=== PATIENT | male | born 1960 | race African-American/Black ===

== ENCOUNTER 2020-05-27 09:18 | Inpatient (IN) | payer OTHER ==
[~2020-05-27] VITALS: Ht 165.1 cm; Wt 49.7 kg
[2020-05-27] MEDS ORDERED: SODIUM CHLORIDE 0.9% 1,000 ML IV ONE ×2 (09:30)
[2020-05-27] MEDS ORDERED: ALBUTEROL SULF 2.5 MG/0.5ML(0.5%) NEB SOLN NEB ONE (09:30)
[2020-05-27] MEDS ORDERED: methylPREDNISolone SOD SUCC 125 MG/2 ML VL IV ONE (09:30)
[2020-05-27] MEDS ORDERED: MAGNESIUM SULFATE 1GM/100ML 100 ML IV ONE (09:30)
[2020-05-27 10:02] LABS: Basophils # (auto) 0.1 10 ^3/uL (0-0.2); Basophils % (auto) 0.5 % (0.0-2.0); Eosinophils # (auto) 0 10 ^3/uL (0-0.8); Eosinophils % (auto) 0.2 % (0.0-7.0); Hematocrit 51.3 % (41.0-53.0); Hemoglobin 16.5 g/dL (13.5-17.5); Lymphocytes # (auto) 2.4 10 ^3/uL (0.4-5.4); Lymphocytes % (auto) 16.2 % (10.0-50.0); Mean Corpuscular Hemoglobin 32.5 pg (28.0-32.0); Mean Corpuscular Hgb Conc. 32.2 g/dL (32.0-36.0); Mean Corpuscular Volume 100.9 fL (80.0-100.0); Monocytes # (auto) 0.8 10 ^3/uL (0-1.3); Monocytes % (auto) 5.5 % (0.0-12.0); Neutrophils # (auto) 11.5 10 ^3/uL (1.6-8.6); Neutrophils % (auto) 77.6 % (37.0-80.0); Nucleated Red Blood Cells % 0.1 %; Platelet Count (auto) 253 10^3/uL (140-450); Red Blood Cells 5.08 10^6/uL (4.5-5.90); Red Cell Distribution Width 15.1 % (11.8-14.3); White Blood Cell 14.8 10^3/uL (4.4-10.8)
[2020-05-27 10:28] LABS: Albumin 3.5 g/dL (3.4-5.0); Calcium 8.3 mg/dL (8.5-10.1); Potassium 3.3 mmol/L (3.5-5.1)
[2020-05-27 10:30] LABS: INR 1.18 (0.9-1.15); Partial Thromboplastin Time 23.4 sec (23.0-31.2)
[2020-05-27 10:36] LABS: BUN/Creatinine Ratio 8.2; Bilirubin, Total 0.8 mg/dL (0.2-1.0); CRP High Sensitivity 0.58 mg/dL (< 0.3); Total Protein 7.6 g/dL (6.4-8.2)
[2020-05-27] MEDS ORDERED: ETOMIDATE (2MG/ML) 20ML VIAL IV ONE ×2 (11:21→11:45)
[2020-05-27] MEDS ORDERED: SUCCINYLCHOLINE CHLORIDE 20 MG/ML 10ML VIAL IV ONE ×2 (11:22→11:45)
[2020-05-27] MEDS ORDERED: MIDAZOLAM DRIP 50 mg/50mL 50 ML IV ONE ×2 (11:23→15:53)
[2020-05-27 11:31] LABS: Urine Bacteria FEW /hpf (None Seen); Urine Blood TRACE /uL (Negative); Urine Hyaline Cast MANY /lpf (0 - 2); Urine Mucus FEW (None Seen); Urine Specific Gravity 1.009 (1.001-1.035); Urine Sperm PRESENT /hpf (None Seen); Urine WBC 3 /hpf (0 - 3)
[2020-05-27] MEDS: MIDAZOLAM DRIP 50 mg/50mL 50 ML IV SCH ×3 (11:35→21:58)
[2020-05-27] MEDS ORDERED: PROPOFOL 100 ML IV ONE (11:59)
[2020-05-27] MEDS: PROPOFOL 100 ML IV SCH ×2 (12:45→20:17)
[2020-05-27] MEDS ORDERED: SODIUM CHLORIDE 0.9% 1,000 ML IV SCH (14:39)
[2020-05-27] MEDS ORDERED: MORPHINE SULF INJ 2 MG/ML SYRINGE 1ML IV PRN (14:45)
[2020-05-27] MEDS ORDERED: VANCOMYCIN PER PHARMACY 0 MG IV SCH (14:45)
[2020-05-27] MEDS ORDERED: NITROGLYCERIN 0.4 MG SL TAB SL PRN (14:45)
[2020-05-27] MEDS: VANCOMYCIN 1GM/250ML 250 ML IV SCH (16:00)
[2020-05-27 16:33] LABS: Lactic Acid w/Reflex 2.8 mmol/L (0.4-2.0)
--- NOTE | 2020-05-27 18:08 | NUR ---
RESP NOTE: INFORMED PRIMARY RN THAT FOLLOW UP CXR TO CONFIRM ETT PLACEMENT HAD NOT BEEN ORDERED. RN TO PLACE ORDER FOR STAT CXR. PT STATUS UNCHANGED AT THIS TIME.
[2020-05-27 18:10] VITALS: BP 143/111
[2020-05-27 20:10] VITALS: BP 144/107
[2020-05-27] MEDS: PIPERACILLIN-TAZOB 2.25GM 50 ML IV SCH (21:59)
[2020-05-28] VITALS (8 sets, daily range): BP systolic 95–124; BP diastolic 69–96
[2020-05-28] MEDS: PROPOFOL 100 ML IV SCH ×2 (00:48→22:11)
[2020-05-28] MEDS: MIDAZOLAM DRIP 50 mg/50mL 50 ML IV SCH ×2 (02:54→22:10)
[2020-05-28 05:32] LABS: Basophils # (auto) 0 10 ^3/uL (0-0.2); Basophils % (auto) 0.2 % (0.0-2.0); Eosinophils # (auto) 0 10 ^3/uL (0-0.8); Hematocrit 44.7 % (41.0-53.0); Hemoglobin 14.9 g/dL (13.5-17.5); Lymphocytes # (auto) 0.8 10 ^3/uL (0.4-5.4); Lymphocytes % (auto) 7.5 % (10.0-50.0); Mean Corpuscular Hemoglobin 33.2 pg (28.0-32.0); Mean Corpuscular Hgb Conc. 33.4 g/dL (32.0-36.0); Mean Corpuscular Volume 99.6 fL (80.0-100.0); Monocytes # (auto) 0.8 10 ^3/uL (0-1.3); Monocytes % (auto) 8.3 % (0.0-12.0); Neutrophils # (auto) 8.4 10 ^3/uL (1.6-8.6); Platelet Count (auto) 190 10^3/uL (140-450); Red Blood Cells 4.49 10^6/uL (4.5-5.90); Red Cell Distribution Width 14.8 % (11.8-14.3)
[2020-05-28 05:51] LABS: Albumin 2.9 g/dL (3.4-5.0); Calcium 7.7 mg/dL (8.5-10.1); Potassium 4.6 mmol/L (3.5-5.1)
[2020-05-28 05:56] LABS: BUN/Creatinine Ratio 15.5; Bilirubin, Total 0.7 mg/dL (0.2-1.0); Total Protein 6.2 g/dL (6.4-8.2)
[2020-05-28] MEDS: PIPERACILLIN-TAZOB 2.25GM 50 ML IV SCH ×3 (06:00→23:00)
[2020-05-28] MEDS: ENOXAPARIN SOD 40 MG/0.4 ML SYRINGE SC SCH (09:22)
[2020-05-28] MEDS: VANCOMYCIN 1GM/250ML 250 ML IV SCH (09:45)
[2020-05-28] MEDS ORDERED: ALBUMIN 25% 100 ML IV ONE (13:15)
[2020-05-28] MEDS ORDERED: FUROSEMIDE 40 MG/4 ML VIAL IV ONE (13:15)
[2020-05-28] MEDS ORDERED: ENOXAPARIN SOD 40 MG/0.4 ML SYRINGE SC ONE (13:30)
[2020-05-28] MEDS: FUROSEMIDE 40 MG/4 ML VIAL IV SCH (17:46)
[2020-05-29] VITALS (64 sets, daily range): BP systolic 89–178; BP diastolic 63–120
[2020-05-29] MEDS: MIDAZOLAM DRIP 50 mg/50mL 50 ML IV SCH (00:37)
[2020-05-29] MEDS: VANCOMYCIN 1GM/250ML 250 ML IV SCH ×2 (04:00→21:48)
[2020-05-29] MEDS: PIPERACILLIN-TAZOB 2.25GM 50 ML IV SCH ×3 (06:00→21:48)
[2020-05-29] MEDS: FUROSEMIDE 40 MG/4 ML VIAL IV SCH ×2 (06:00→18:29)
[2020-05-29 08:13] LABS: Basophils # (auto) 0.1 10 ^3/uL (0-0.2); Basophils % (auto) 0.7 % (0.0-2.0); Eosinophils # (auto) 0 10 ^3/uL (0-0.8); Eosinophils % (auto) 0.2 % (0.0-7.0); Hematocrit 48.9 % (41.0-53.0); Hemoglobin 15.9 g/dL (13.5-17.5); Lymphocytes # (auto) 1.4 10 ^3/uL (0.4-5.4); Lymphocytes % (auto) 9.6 % (10.0-50.0); Mean Corpuscular Hemoglobin 32.4 pg (28.0-32.0); Mean Corpuscular Hgb Conc. 32.5 g/dL (32.0-36.0); Mean Corpuscular Volume 99.7 fL (80.0-100.0); Monocytes # (auto) 1.2 10 ^3/uL (0-1.3); Monocytes % (auto) 8.3 % (0.0-12.0); Neutrophils # (auto) 11.9 10 ^3/uL (1.6-8.6); Neutrophils % (auto) 81.2 % (37.0-80.0); Nucleated Red Blood Cells % 0.1 %; Platelet Count (auto) 190 10^3/uL (140-450); Red Blood Cells 4.91 10^6/uL (4.5-5.90); Red Cell Distribution Width 15.2 % (11.8-14.3); White Blood Cell 14.7 10^3/uL (4.4-10.8)
[2020-05-29 08:38] LABS: Potassium 4.6 mmol/L (3.5-5.1)
[2020-05-29 08:46] LABS: Albumin 3.3 g/dL (3.4-5.0); Bilirubin, Total 0.9 mg/dL (0.2-1.0); Total Protein 6.7 g/dL (6.4-8.2)
--- NOTE | 2020-05-29 08:50 | NUR ---
Admit to ICU from ER on RITA Walker admitted to ICU ROOM 103 via gurney on sales associate, intubated and being bagged by Respiratory Therapist. Patient transferred to bed, connected to mechanical ventilator by therapist, GIBSON at bedside. Patient connected to ICU monitoring, weighed by bed scale, oriented to RADHA NAQVI, MARY primary RN, unit, ventilator and sedation.
[2020-05-29] MEDS: PANTOPRAZOLE 40 MG/10 ML VIAL INJ IV SCH (10:00)
[2020-05-29] MEDS: ENOXAPARIN SOD 40 MG/0.4 ML SYRINGE SC SCH (10:00)
--- NOTE | 2020-05-29 10:57 | NUR ---
Est energy needs 3832-1581 kcal (25-30 kcal/kg BW 63kg) Est protein needs 38-50g (0.6-0.8g/kg BW 63kg r/t elevated RFT) Will reassess prn. Consider Glucerna 1.2 at 40 ml/hr per MD approval if GI is accessible Addendum: 05/29/20 at [address] Amended: Links added.
[2020-05-29] MEDS: DOBUTamine 1000MCG/ML 250 ML IV SCH (11:28)
--- NOTE | 2020-05-29 12:50 | NUR ---
ABDOMINAL ULTRASOUND BEING DONE AT THIS TIME.
--- NOTE | 2020-05-29 13:45 | NUR ---
2D ECHO BEING DONE AT THIS TIME.
[2020-05-29] MEDS ORDERED: METOPROLOL TARTRATE 1MG/1ML-5ML VIAL IV PRN (14:45)
--- NOTE | 2020-05-29 15:56 | NUR ---
THIS RN WAS UNABLE TO ENTIRELY COMPLETE THE ADMISSION DUE TO PATIENT BEING INTUBATED AND SEDATED, PATIENT IS UNABLE TO ANSWER ANY QUESTIONS AND PATIENT HAS NO FAMILY.
--- NOTE | 2020-05-29 16:00 | NUR ---
WOUND CARE NOTE: IN TO SEE PATIENT AT THIS TIME FOR SKIN INTEGRITY. PATIENT ADMITTED TO [facility] WITH DIAGNOSIS OF PNA. HE IS INTUBATED, SEDATED, CADEN SCORE IS 10. PATIENT IN ICU BED 103A. HE IS RESTING ON ICU LOW AIRLOSS MATTRESS. HE IS VERY THIN, WEIGHING ONLY 67.1 KG. NO WOUNDS NOTED. HE DOES HAVE WHAT APPEARS TO BE XEROSIS TO BLE, WITH PATCHY WHITE SKIN NOTED TO BILATERAL LEGS. NO OTHER SKIN INTEGRITY ISSUES. SKIN/WOUND CARE PLAN IMPLEMENTED. RECOMMEND: FREQUENT TURN SCHEDULE Q 2 HOURS PRN CONDITION PERMITS, WITH PRESSURE REDISTRIBUTION USING PILLOWS/WEDGES, BID/PRN APPLICATION MOISTURE BARRIER CREAM (HYDRAGUARD) TO SACRUM AND BILATERAL LOWER EXTREMITIES (XEROTIC SKIN), COVERING SACRUM WITH OPTIFOAM GENTLE SACRAL DRESSING PREVENTATIVE, DIETARY CONSULT, SKIN/WOUND CARE PLAN, CONTINUED MONITORING BY WOUND CARE TEAM.
--- NOTE | 2020-05-29 19:30 | NUR ---
OPENING SHIFT NOTE REPORT RECEIVED FROM CHARLES RN. RECEIVED MECHANICALLY VENTILATED ON CONTINUOUS BEDSIDE MONITOR. ETT 8.0, 22 AT THE LIP. VENT SETTINGS: PRESSURE CONTROL, RATE 20, PRESSURE 12, FIO2 50%, PEEP 5. OGT TUBE IN PLACE, AUSCULTATED TO VERIFY PLACEMENT. RIGHT FEMORAL TRIPLE LUMEN CATH RUNNING VERSED, PROPOFOL, AND DOBUTAMINE GTTS-SEE IV SPREAD SHEET FOR RATES. PHYSICAL ASSESSMENT COMPLETED- SEE INTERVENTIONS. DAUGHERTY DRAINING YELLOW URINE WITH SEDIMENT. WILL MONITOR CLOSELY.
--- NOTE | 2020-05-29 21:00 | NUR ---
SEDATION VACATION UNABLE TO COMPLETELY STOP ALL SEDATION AT THIS TIME. WILL BEGIN TO WEAN PATIENT DOWN ON SEDATION FOR POSSIBLE CPAP TRIAL IN AM. Addendum: 05/29/20 at 2120 by Devi Davis RN Amended: Links added.
[2020-05-29] MEDS: PROPOFOL 100 ML IV SCH (22:50)
[2020-05-30] VITALS (104 sets, daily range): BP systolic 96–164; BP diastolic 58–105
[2020-05-30] MEDS: MIDAZOLAM DRIP 50 mg/50mL 50 ML IV SCH ×2 (01:49→19:42)
[2020-05-30 03:56] LABS: Basophils # (auto) 0 10 ^3/uL (0-0.2); Basophils % (auto) 0.3 % (0.0-2.0); Eosinophils # (auto) 0 10 ^3/uL (0-0.8); Eosinophils % (auto) 0.1 % (0.0-7.0); Hematocrit 44.3 % (41.0-53.0); Hemoglobin 14.6 g/dL (13.5-17.5); Lymphocytes # (auto) 1.3 10 ^3/uL (0.4-5.4); Mean Corpuscular Hemoglobin 32.8 pg (28.0-32.0); Mean Corpuscular Hgb Conc. 32.9 g/dL (32.0-36.0); Mean Corpuscular Volume 99.7 fL (80.0-100.0); Monocytes # (auto) 1.3 10 ^3/uL (0-1.3); Monocytes % (auto) 8.8 % (0.0-12.0); Neutrophils # (auto) 11.9 10 ^3/uL (1.6-8.6); Neutrophils % (auto) 81.8 % (37.0-80.0); Platelet Count (auto) 166 10^3/uL (140-450); Red Blood Cells 4.44 10^6/uL (4.5-5.90); Red Cell Distribution Width 14.9 % (11.8-14.3); White Blood Cell 14.6 10^3/uL (4.4-10.8)
--- NOTE | 2020-05-30 04:00 | NUR ---
DESATURATION DOWN TO 79%: SUCTIONED LARGE AMOUNT OF THIN/THICK CLEAR TO BLOODY ETT SECRETION AND ORAL SECRETIONS. PATIENT RECOVERED TO > 90% BUT TOOK HIM LONGER THAN 20 SECONDS. PULSE OX PROBE PLACED TO EAR D/T COLD EXTREMITIES. IAIN LU
[2020-05-30 04:13] LABS: BUN/Creatinine Ratio 14.9; Calcium 8.3 mg/dL (8.5-10.1); Potassium 3.7 mmol/L (3.5-5.1)
--- NOTE | 2020-05-30 04:15 | NUR ---
AM CARE PATIENT GIVEN A BED BATH USING CHG WIPES. LINEN AND GOWN CHANGE PROVIDED TO PATIENT. SMALL LOOSE BM NOTED, PATIENT CLEANSED WITH WARM SOAPY WASH CLOTHS. NEW OPTIFOAM PLACED TO SACRUM PREVENTATIVE. SKIN REASSESSED DURING THIS TIME, NO CHANGES SINCE START OF SHIFT. SUCTION CANISTER AND ALL TUBING REPLACED.
[2020-05-30] MEDS: PROPOFOL 100 ML IV SCH (05:10)
[2020-05-30] MEDS: PIPERACILLIN-TAZOB 2.25GM 50 ML IV SCH ×3 (05:52→22:10)
[2020-05-30] MEDS: FUROSEMIDE 40 MG/4 ML VIAL IV SCH ×2 (05:52→17:34)
--- NOTE | 2020-05-30 06:50 | NUR ---
FAMILY PATIENTS CALLED FOR AN UPDATE. NO NOK LISTED IN CHART. WAS ABLE TO VERIFY ALL INFORMATION OF PATIENT SUCH , ADDRESS AND LAST 4 OF SOCIAL. NOK [phone] PASSWORD UPDATED: "[id number]"
--- NOTE | 2020-05-30 07:05 | NUR ---
CLOSING CARE ENDORSED TO AM SHIFT MARY GARCIA TO ASSUME CARE OF PATIENT.
--- NOTE | 2020-05-30 08:40 | NUR ---
FAMILY UPDATE UPDATED PATIENTS MOM JAGDEEP ON PATIENTS CURRENT CONDITION. ALL QUESTIONS ANSWERED AT THIS TIME. JOSÉ MIGUEL # IS [phone].
[2020-05-30] MEDS: PANTOPRAZOLE 40 MG/10 ML VIAL INJ IV SCH (09:32)
[2020-05-30] MEDS: DOBUTamine 1000MCG/ML 250 ML IV SCH (09:33)
[2020-05-30] MEDS: ENOXAPARIN SOD 40 MG/0.4 ML SYRINGE SC SCH (09:33)
[2020-05-30] MEDS ORDERED: Glucerna 1.2 Cal 1Liter BOTTLE GT SCH (11:45)
--- NOTE | 2020-05-30 12:20 | NUR ---
FAMILY UPDATE UPDATED PATIENTS CAR ON PATIENTS CURRENT CONDITION. ALL QUESTIONS ANSWERED AT THIS TIME.
--- NOTE | 2020-05-30 12:48 | NUR ---
PATIENT TAKEN TO CT.
--- NOTE | 2020-05-30 12:56 | NUR ---
assessment Patient is a 60 year old male who is on a vent in ICU. Per patients Truman prior to admission patient lived home with her and family and was independent. 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 Per Truman she had left for work and within 20minutes patient had called 911 and was brought to ER. Patients PCP is at [facility]. I informed Truman patients post discharge needs to be determined after extubation and prior to discharge. I will continue to monitor and follow up as appropriate. Truman verbalized understanding. Addendum: 05/30/20 at 1301 by Mariah KUMARI Amended: Links added.
--- NOTE | 2020-05-30 13:16 | NUR ---
PATIENT RETURNED FROM CT. PATIENT LINENS CHANGED AND PATIENT MADE COMFORTABLE.
--- NOTE | 2020-05-30 13:45 | NUR ---
MULTIPLE PHONE CALLS FROM FAMILY MEMBERS ONE RIGHT AFTER ANOTHER. SPOKE TO CAR WHO STATES THAT SHE IS NOW THE ONLY ONE WHO CAN CALL AND GET INFORMATION AT THIS TIME DUE TO INCREASED PHONE CALLS.
--- NOTE | 2020-05-30 14:05 | NUR ---
Nutrition Assessment Followup Notes Pt wt is 68.3 kg Pt is intubated, sedated with propofol @ 11.431 ml providing 302 kcals from lipids. Pt has been NPO since 05/21 per RN doc. Per RN, pt to be started on EN nutrition support Glucerna 1.2 at a lessor rate than the recommended goal rate of 40ml/hr to gauge pt tolerance, increasing as tolerated. Est energy needs 4109-4702 kcal (25-30 kcal/kg BW 63kg) Est protein needs 38-50g (0.6-0.8g/kg BW 63kg r/t elevated RFT) Will reassess prn. LABS: BUN 20 H, CR 1.34 H, CA 8.3 L, ALB 3.3 L GI: Pt had 1 BM on 05/30 per RN doc BS: 10 high risk. Refer to wound assessment report for full details. PES: 1) Altered nutrition related labs r/t current medical condition aeb pt with elevated RFTs, hypoalb, hyperlgycemia 2) Inadequate oral intake r/t current medical condition aeb pt with NPO diet order Comments Will continue to monitor PO status, skin status, pertinent labs and weight trends. Will f/u in 2-3 days. 1) Continue to monitor po status, labs, skin 2) refer pt to OPD on DC 3) Continue current plan of care Consider Glucerna 1.2 at 40 ml/hr per MD approval if GI is accessible
--- NOTE | 2020-05-30 15:00 | NUR ---
05/30/20 Rosalina Spoke with Gutierrez is support analyst at [place] [facility] and stated they received the clinical packet and gave authorization for the in patient stay for 06/05/20 @1000 # [id number].
[2020-05-30] MEDS: ACETYLCYSTEINE 10 %(100MG/ML) SOL 4ML NEB SCH ×2 (15:43→22:59)
[2020-05-30] MEDS: VANCOMYCIN 1GM/250ML 250 ML IV SCH (17:34)
--- NOTE | 2020-05-30 19:30 | NUR ---
OPENING SHIFT NOTE REPORT RECEIVED FROM CHARLES RN. RECEIVED MECHANICALLY VENTILATED ON CONTINUOUS BEDSIDE MONITOR. ETT 8.0, 22 AT THE LIP. VENT SETTINGS: PRESSURE CONTROL, RATE 16, PRESSURE 12, FIO2 75%, PEEP 5. OGT TUBE IN PLACE, AUSCULTATED TO VERIFY PLACEMENT. RIGHT FEMORAL TRIPLE LUMEN CATH RUNNING VERSED, PROPOFOL, AND DOBUTAMINE GTTS-SEE IV SPREAD SHEET FOR RATES. PHYSICAL ASSESSMENT COMPLETED- SEE INTERVENTIONS. DAUGHERTY DRAINING YELLOW URINE WITH SEDIMENT. WILL MONITOR CLOSELY.
--- NOTE | 2020-05-30 20:22 | NUR ---
FEEDING GLUCERNA 1.2 HANNAH STARTED ORDERED BY MD. RESIDUAL IN OGT CHECKED PRIOR TO ADMINISTRATION. NO RESIDUALS NOTED. HOB ELEVATED. GLUCERNA STARTED AT 10ML/HR. GOAL RATE IS 40. WILL INCREASE DEPENDING ON RESIDUALS. WILL CONTINUE TO MONITOR.
--- NOTE | 2020-05-30 21:00 | NUR ---
SEDATION VACATION NOT DONE AT THIS TIME. RESPIRATORY STATUS TOO UNSTABLE. Addendum: 05/30/20 at 2237 by Devi Davis RN Amended: Links added.
[2020-05-30] MEDS: BUDESONIDE (INHALATION) 0.5 MG/2 ML NEB NEB SCH (22:59)
[2020-05-30] MEDS: ALBUTEROL SULF 2.5 MG/0.5ML(0.5%) NEB SOLN NEB SCH (22:59)
--- NOTE | 2020-05-30 23:12 | NUR ---
PREVIOUS ABG REPORTED TO DR. ZUNIGA. NEW ORDERS FOR VENT. VENT SETTINGS PC P 14, RR 22, +5, I-TIME 0.9, AND FIO2 OF 60%. WILL DRAW FOLLOW UP ABG.
[2020-05-31] VITALS (107 sets, daily range): BP systolic 92–145; BP diastolic 56–94
--- NOTE | 2020-05-31 00:20 | NUR ---
TUBE FEEDINGS RESIDUALS CHECKED, LESS THAN 5ML NOTED. FEEDINGS INCREASED TO 30ML/HR. WILL CONTINUE TO MONITOR.
[2020-05-31] MEDS: PROPOFOL 100 ML IV SCH ×2 (00:45→06:24)
--- NOTE | 2020-05-31 03:15 | NUR ---
AM CARE PATIENT GIVEN COMPLETE BED BATH USING CHG WIPES ON EXTREMITIES AND TORSO. WARM SOAPY WASH CLOTH USED TO CLEAN FACE. COMPLETE LINEN CHANGE GIVEN. NEW GOWN PROVIDED TO PATIENT. ORAL CARE DONE, COPIOUS AMOUNTS OF THIN PINK TINGED SECRETIONS FROM ORAL CAVITY REMOVED. SUCTION CANISTER AND ALL TUBING REPLACED.
[2020-05-31 04:16] LABS: Basophils # (auto) 0 10 ^3/uL (0-0.2); Basophils % (auto) 0.2 % (0.0-2.0); Eosinophils # (auto) 0 10 ^3/uL (0-0.8); Eosinophils % (auto) 0.4 % (0.0-7.0); Hematocrit 44.4 % (41.0-53.0); Hemoglobin 14.4 g/dL (13.5-17.5); Lymphocytes # (auto) 1.2 10 ^3/uL (0.4-5.4); Lymphocytes % (auto) 10.1 % (10.0-50.0); Mean Corpuscular Hemoglobin 32.4 pg (28.0-32.0); Mean Corpuscular Hgb Conc. 32.3 g/dL (32.0-36.0); Mean Corpuscular Volume 100.1 fL (80.0-100.0); Monocytes # (auto) 0.9 10 ^3/uL (0-1.3); Monocytes % (auto) 7.5 % (0.0-12.0); Neutrophils # (auto) 9.7 10 ^3/uL (1.6-8.6); Neutrophils % (auto) 81.8 % (37.0-80.0); Nucleated Red Blood Cells % 0.1 %; Platelet Count (auto) 182 10^3/uL (140-450); Red Blood Cells 4.44 10^6/uL (4.5-5.90); Red Cell Distribution Width 14.9 % (11.8-14.3); White Blood Cell 11.9 10^3/uL (4.4-10.8)
--- NOTE | 2020-05-31 04:17 | NUR ---
TUBE ADVANCED AND SECURED BY TADEO AT 25 UPPER LIP BASED ON REPORT ON PREVIOUS CHEST X-RAY. Addendum: 05/31/20 at 0435 by IAIN HAWK RT ETT ADVANCED
[2020-05-31 04:40] LABS: Albumin 2.7 g/dL (3.4-5.0); BUN/Creatinine Ratio 14.3; Calcium 8.5 mg/dL (8.5-10.1); Total Protein 6.5 g/dL (6.4-8.2)
--- NOTE | 2020-05-31 05:00 | NUR ---
FEEDINGS HELD. RESIDUALS CHECKED AT THIS TIME. 50ML OF GASTRIC CONTENT ASPIRATED AND PLACED BACK IN. TUBE FEEDINGS STOPPED AT THIS TIME.
[2020-05-31] MEDS: FUROSEMIDE 40 MG/4 ML VIAL IV SCH ×2 (06:01→18:16)
[2020-05-31] MEDS: PIPERACILLIN-TAZOB 2.25GM 50 ML IV SCH (06:02)
[2020-05-31] MEDS: BUDESONIDE (INHALATION) 0.5 MG/2 ML NEB NEB SCH ×2 (06:07→23:16)
[2020-05-31] MEDS: ALBUTEROL SULF 2.5 MG/0.5ML(0.5%) NEB SOLN NEB SCH ×3 (06:07→23:16)
[2020-05-31] MEDS: ACETYLCYSTEINE 10 %(100MG/ML) SOL 4ML NEB SCH ×3 (06:07→23:17)
--- NOTE | 2020-05-31 07:08 | NUR ---
CLOSING CARE ENDORSED TO MARY GARCIA TO ASSUME CARE OF PATIENT.
[2020-05-31] MEDS: POTASSIUM CHL 20MEQ/100ML 100 ML IV SCH ×3 (08:00→09:46)
[2020-05-31] MEDS ORDERED: POTASSIUM CHL 20MEQ/100ML 300 ML IV ONE (08:15)
[2020-05-31] MEDS: PANTOPRAZOLE 40 MG/10 ML VIAL INJ IV SCH (10:00)
[2020-05-31] MEDS: ENOXAPARIN SOD 40 MG/0.4 ML SYRINGE SC SCH (10:00)
[2020-05-31] MEDS ORDERED: PIPERACILLIN-TAZOB 3.375GM 100 ML IV ONE (13:00)
[2020-05-31] MEDS: DOBUTamine 1000MCG/ML 250 ML IV SCH (13:42)
[2020-05-31] MEDS: VANCOMYCIN 1GM/250ML 250 ML IV SCH (14:23)
[2020-05-31] MEDS: PIPERACILLIN-TAZOB 3.375GM 100 ML IV SCH (18:17)
[2020-05-31] MEDS ORDERED: PIPERACILLIN-TAZOB 3.375GM 100 ML IV SCH (19:00)
--- NOTE | 2020-05-31 19:30 | NUR ---
Opening Shift Note Assumed care of patient, tolerating ventilator well, mod sedation. No S/S of distress or pain. De La Fuente draining and patent to gravity. Feeding held at this time to allow for digestion and minimize residuals. All medications and drips infusing as appropriate for pt. Oral care provided, pt turned. VS WNL. Instructed on POC unable to comprehend under sedation, will continue to closely monitor.
--- NOTE | 2020-05-31 22:10 | NUR ---
No S/S of distress. Tolerated oral care well. No changes in infusions or ventilation care. Will continue to monitor.
[2020-05-31] MEDS: MIDAZOLAM DRIP 50 mg/50mL 50 ML IV SCH (22:27)
--- NOTE | 2020-05-31 23:26 | NUR ---
Feeding started. 40ml of residual bial noted. Feeding infusing at 20ml/hr. No S/S of distress. Tolerating vent and sedation well. Will continue to monitor.
[2020-06-01] VITALS (103 sets, daily range): BP systolic 113–176; BP diastolic 64–108
--- NOTE | 2020-06-01 00:04 | NUR ---
Pt remains stable. Oral care done, pt turned and temp of 99.3 rectally noted. Covers removed and socks removed. Will continue to monitor. Other VS WNL.
[2020-06-01] MEDS: PIPERACILLIN-TAZOB 3.375GM 100 ML IV SCH ×4 (01:02→19:18)
[2020-06-01] MEDS: PROPOFOL 100 ML IV SCH ×3 (01:04→19:21)
--- NOTE | 2020-06-01 02:00 | NUR ---
Low grade temp 99.5 rectally, blankets and socks removed, ice packs placed. Pt turned and oral care given, tolerated well.
--- NOTE | 2020-06-01 03:00 | NUR ---
Temp 98.4. socks and blanket applied. Pt bathed and linen changed. Zguard on buttocks for protection. No S/S of distress.
[2020-06-01 04:27] LABS: BUN/Creatinine Ratio 11.7; Calcium 8.9 mg/dL (8.5-10.1); Potassium 3.4 mmol/L (3.5-5.1)
--- NOTE | 2020-06-01 05:00 | NUR ---
Pt stable, tolerating vent well. Turned and oral care. Putting more oral secretions out as the morning comes. Frequent oral suction with beckaker needed. Will continue to monitor.
[2020-06-01] MEDS: BUDESONIDE (INHALATION) 0.5 MG/2 ML NEB NEB SCH ×2 (06:06→22:13)
[2020-06-01] MEDS: ALBUTEROL SULF 2.5 MG/0.5ML(0.5%) NEB SOLN NEB SCH ×3 (06:06→22:13)
[2020-06-01] MEDS: ACETYLCYSTEINE 10 %(100MG/ML) SOL 4ML NEB SCH ×3 (06:07→22:12)
[2020-06-01] MEDS: FUROSEMIDE 40 MG/4 ML VIAL IV SCH ×2 (06:52→18:00)
[2020-06-01] MEDS: MIDAZOLAM DRIP 50 mg/50mL 50 ML IV SCH ×2 (06:54→19:20)
--- NOTE | 2020-06-01 07:23 | NUR ---
Temp 99.5 but reported to AM shift of issue. Also gave full report on pt. No S/S of distress at time of report, stable VS WNL. Care endorsed.
--- NOTE | 2020-06-01 07:51 | NUR ---
EPISODE OF BRADYCARDIA AND TACHYCARDIA Patient had an episode of desaturation, down to 30%. Heart rate up to 186 beats per minute and down to 52 beats per minute. Heart rate went up then down, back up, back down. Brought crash cart and placed pads on patient. Currently heart rate is now maintaining 98-100bpm.
--- NOTE | 2020-06-01 08:00 | NUR ---
OPENING Report received. Care initiated and initial assessment complete.
--- NOTE | 2020-06-01 08:00 | NUR ---
PAGED DR SOLEDAD Carvajal responded. New orders received.
[2020-06-01] MEDS: DOPamine 1600MCG/ML D5W 250 ML IV SCH (08:02)
--- NOTE | 2020-06-01 09:00 | NUR ---
DR CARVAJAL ROUNDING Dr. Carvajal on the unit. No changes.
--- NOTE | 2020-06-01 09:50 | NUR ---
BEDSIDE Dr. Pappas bedside. No new orders received. Updated on patient status.
[2020-06-01] MEDS: VANCOMYCIN 1GM/250ML 250 ML IV SCH ×2 (09:51→12:15)
[2020-06-01] MEDS: POTASSIUM CHL 20MEQ/100ML 100 ML IV SCH ×2 (09:53→10:30)
[2020-06-01] MEDS: PANTOPRAZOLE 40 MG/10 ML VIAL INJ IV SCH (09:53)
[2020-06-01] MEDS: ENOXAPARIN SOD 40 MG/0.4 ML SYRINGE SC SCH (09:53)
--- NOTE | 2020-06-01 10:55 | NUR ---
Nutrition Assessment Followup Notes Pt wt is 63.0 kg Pt is intubated, sedated with propofol @ 13.336 ml providing 352 kcals from lipids. PT with Glucerna 1.2 ordered at 40 ml/hr. Per RN note pt with residuals of 40 ml, pt on TF of 20 ml/hr. will continue to monitor TF rate and tolerance. Est energy needs 8036-5335 kcal (25-30 kcal/kg BW 63kg) Est protein needs 50-63g (0.8-1g/kg BW 63kg appears JANEEN resolved, RFTs WNL, consider adjusting if RFTs become elevated again) Will reassess prn. LABS: CO2 38H, Alb 2.7L GI: Pt had 1 BM on 05/30 per RN doc BS: 11 high risk. Refer to wound assessment report for full details. PES: 1) Altered nutrition related labs r/t current medical condition aeb pt with elevated RFTs, hypoalb, hyperlgycemia 2) Inadequate oral intake r/t current medical condition aeb pt with NPO diet order Comments Consider Osmolite 1.2 at 50 ml/hr at current rate of propofol per MD approval Will continue to monitor PO status, skin status, pertinent labs and weight trends. Will f/u in 2-3 days. 1) Continue to monitor po status, labs, skin 2) refer pt to OPD on DC 3) Continue current plan of care
[2020-06-01] MEDS: DOBUTamine 1000MCG/ML 250 ML IV SCH (11:15)
--- NOTE | 2020-06-01 14:00 | NUR ---
FULL LINEN CHANGE/BM Small runny BM. Patient tolerated fairly.
--- NOTE | 2020-06-01 21:00 | NUR ---
SEDATION VACATION PATIENT IS DEEPLY SEDATED. SEDATION TURNED OFF TO CHECK THE NEURO STATUS.
[2020-06-02] VITALS (108 sets, daily range): BP systolic 105–175; BP diastolic 32–105
[2020-06-02] MEDS: PIPERACILLIN-TAZOB 3.375GM 100 ML IV SCH ×4 (01:24→18:09)
[2020-06-02] MEDS: PROPOFOL 100 ML IV SCH (03:54)
[2020-06-02 04:57] LABS: Basophils # (auto) 0 10 ^3/uL (0-0.2); Basophils % (auto) 0.4 % (0.0-2.0); Eosinophils # (auto) 0.1 10 ^3/uL (0-0.8); Eosinophils % (auto) 1.4 % (0.0-7.0); Hematocrit 46.5 % (41.0-53.0); Hemoglobin 15.5 g/dL (13.5-17.5); Lymphocytes # (auto) 0.9 10 ^3/uL (0.4-5.4); Lymphocytes % (auto) 9.9 % (10.0-50.0); Mean Corpuscular Hemoglobin 32.8 pg (28.0-32.0); Mean Corpuscular Hgb Conc. 33.3 g/dL (32.0-36.0); Mean Corpuscular Volume 98.6 fL (80.0-100.0); Monocytes # (auto) 1.5 10 ^3/uL (0-1.3); Neutrophils # (auto) 6.8 10 ^3/uL (1.6-8.6); Neutrophils % (auto) 72.3 % (37.0-80.0); Nucleated Red Blood Cells % 0.2 %; Platelet Count (auto) 216 10^3/uL (140-450); Red Blood Cells 4.71 10^6/uL (4.5-5.90); White Blood Cell 9.3 10^3/uL (4.4-10.8)
--- NOTE | 2020-06-02 05:00 | NUR ---
SEDATION INCREASED PATIENT IS LIGHTLY SEDATED. HYPERTENSIVE. DIPRIVAN INCREASED TO 45MCG/KG/MIN
[2020-06-02 05:11] LABS: Calcium 9.2 mg/dL (8.5-10.1); Potassium 3.4 mmol/L (3.5-5.1)
[2020-06-02] MEDS: DOPamine 1600MCG/ML D5W 250 ML IV SCH (05:12)
[2020-06-02 05:14] LABS: BUN/Creatinine Ratio 12.7
[2020-06-02] MEDS: VANCOMYCIN 1GM/250ML 250 ML IV SCH (05:51)
[2020-06-02] MEDS: FUROSEMIDE 40 MG/4 ML VIAL IV SCH ×2 (05:51→18:09)
[2020-06-02] MEDS: ALBUTEROL SULF 2.5 MG/0.5ML(0.5%) NEB SOLN NEB SCH ×3 (06:20→22:17)
[2020-06-02] MEDS: ACETYLCYSTEINE 10 %(100MG/ML) SOL 4ML NEB SCH ×3 (06:20→22:18)
[2020-06-02] MEDS: MIDAZOLAM DRIP 50 mg/50mL 50 ML IV SCH (06:36)
--- NOTE | 2020-06-02 07:45 | NUR ---
OPENING Report received from Jerod RIOS RN. Care initiated and initial assessment complete.
--- NOTE | 2020-06-02 09:13 | NUR ---
PARTIAL LINEN CHANGE / SMALL BM Patient had a small liquid BM. Cleaned, and new linen placed. Patient tolerated well.
[2020-06-02] MEDS: PANTOPRAZOLE 40 MG/10 ML VIAL INJ IV SCH (09:49)
[2020-06-02] MEDS: ENOXAPARIN SOD 40 MG/0.4 ML SYRINGE SC SCH (09:49)
[2020-06-02] MEDS: DOBUTamine 1000MCG/ML 250 ML IV SCH (11:00)
[2020-06-02 11:25] LABS: Hepatitis B Surface Antibody Negative
[2020-06-02 11:45] LABS: Hepatitis A Total Antibody Negative
[2020-06-02 13:14] LABS: Hepatitis C Antibody Negative (Negative)
[2020-06-02 13:15] LABS: Hepatitis B Core Total AB Negative
[2020-06-02 13:16] LABS: Hepatitis B Surface Antigen Negative (Negative)
[2020-06-02] MEDS: BUDESONIDE (INHALATION) 0.5 MG/2 ML NEB NEB SCH ×2 (14:10→22:17)
[2020-06-02] MEDS: POTASSIUM CHL 20MEQ/100ML 100 ML IV SCH ×2 (16:30→18:30)
--- NOTE | 2020-06-02 19:30 | NUR ---
REPORT RECEIVED AND ASSUMED CARE; SEE INTERVENTIONS FOR ASSESSMENT; VS STABLE AT THIS TIME; SEE IV SPREADSHEET FOR GTTS; PT. INTUBATED/SEDATED/VENTED; WILL CONT. TO MONITOR.
[2020-06-03] VITALS (102 sets, daily range): BP systolic 117–201; BP diastolic 6–115
[2020-06-03] MEDS: VANCOMYCIN 1GM/250ML 250 ML IV SCH ×2 (00:15→21:00)
[2020-06-03] MEDS: PIPERACILLIN-TAZOB 3.375GM 100 ML IV SCH ×4 (02:00→17:58)
--- NOTE | 2020-06-03 02:30 | NUR ---
XW=[id number]; ACCUCHECK PERFORMED PT. ON TUBE-FEEDING; NO ISS; WILL CONT. TO MONITOR.
[2020-06-03 04:52] LABS: Basophils # (auto) 0 10 ^3/uL (0-0.2); Basophils % (auto) 0.4 % (0.0-2.0); Eosinophils # (auto) 0.1 10 ^3/uL (0-0.8); Eosinophils % (auto) 1.5 % (0.0-7.0); Hematocrit 45.1 % (41.0-53.0); Hemoglobin 14.9 g/dL (13.5-17.5); Lymphocytes # (auto) 1.2 10 ^3/uL (0.4-5.4); Lymphocytes % (auto) 14.4 % (10.0-50.0); Mean Corpuscular Hemoglobin 32.7 pg (28.0-32.0); Mean Corpuscular Hgb Conc. 33.2 g/dL (32.0-36.0); Mean Corpuscular Volume 98.5 fL (80.0-100.0); Monocytes # (auto) 1.3 10 ^3/uL (0-1.3); Monocytes % (auto) 15.7 % (0.0-12.0); Neutrophils # (auto) 5.5 10 ^3/uL (1.6-8.6); Nucleated Red Blood Cells % 0.2 %; Platelet Count (auto) 209 10^3/uL (140-450); Red Blood Cells 4.57 10^6/uL (4.5-5.90); White Blood Cell 8.1 10^3/uL (4.4-10.8)
[2020-06-03 05:07] LABS: Albumin 2.9 g/dL (3.4-5.0); Potassium 3.6 mmol/L (3.5-5.1)
[2020-06-03 05:13] LABS: BUN/Creatinine Ratio 15.5; Bilirubin, Total 0.6 mg/dL (0.2-1.0); Calcium 9.4 mg/dL (8.5-10.1); Total Protein 7.4 g/dL (6.4-8.2)
[2020-06-03] MEDS: ALBUTEROL SULF 2.5 MG/0.5ML(0.5%) NEB SOLN NEB SCH ×3 (05:52→22:09)
[2020-06-03] MEDS: BUDESONIDE (INHALATION) 0.5 MG/2 ML NEB NEB SCH ×2 (05:52→22:09)
[2020-06-03] MEDS: ACETYLCYSTEINE 10 %(100MG/ML) SOL 4ML NEB SCH ×3 (05:52→22:10)
--- NOTE | 2020-06-03 07:30 | NUR ---
REPORT REPORT RECEIVED FROM HARLEY RNEMILY. BEDSIDE CHECK DONE. PT INTUBATED AND SEDATED WITH NO DISTRESS NOTED. CONTINUE TO MONITOR.
[2020-06-03] MEDS: FUROSEMIDE 40 MG/4 ML VIAL IV SCH ×2 (07:50→17:56)
--- NOTE | 2020-06-03 08:00 | NUR ---
ASSESSMENT PT RESTING IN BED WITH EYES CLOSED. MILD WITHDRAWL TO PAINFUL STIMULI. SEDATEDD AND INTUBATED WITH VENTILATOR SETTINGS OF: 8 FR ETT/25 AT THE LIP, PC RATE OF 22, PRESSURE OF 14, 35% fio2 and peep of 5. lungs clear aand diminished. TELE SR 80. PALPABLE PULSES TO ALL EXTREMITIES WITH NO EDEMA NOTED. SCDS TO BLE. ABD SOFT WITH + BOWEL SOUNDS. OGT WITH + PLACEMENT AND NO RESIDUAL NOTED. OGT FEEDING OF GLUCERNA AT 20 ML/HR AND INCREASED TO 30ML/HR. DAUGHERTY CATHETER DRAINING YELLOW URINE WITH SEDIMENT. SACRAL OPTIFOAM IN PLACE AND SKIN IS CLEAR. TURNED TOTHE LEFT. SEDATED ON VERSED AND DIPRIVAN. CONTINUE TO MONITOR.
[2020-06-03] MEDS: PROPOFOL 100 ML IV SCH (10:00)
[2020-06-03] MEDS: DOPamine 1600MCG/ML D5W 250 ML IV SCH ×2 (10:09→23:32)
[2020-06-03] MEDS: PANTOPRAZOLE 40 MG/10 ML VIAL INJ IV SCH (10:09)
[2020-06-03] MEDS: ENOXAPARIN SOD 40 MG/0.4 ML SYRINGE SC SCH (10:09)
--- NOTE | 2020-06-03 10:15 | NUR ---
ALL SEDATION OFF NOW FOR SEDATION VACATION PER DR MAYES.
--- NOTE | 2020-06-03 11:20 | NUR ---
Nutrition Assessment Followup Notes Pt wt is 58.3 kg Pt is intubated, sedated with propofol @ 17.146 ml providing 452 kcals from lipids. PT with Glucerna 1.2 ordered at 30 ml/hr providing 864 kcals and 43 gm proteins Est energy needs 8985-9932 kcal (25-30 kcal/kg BW 63kg) , Est protein needs 50-63g (0.8-1g/kg BW 63kg appears JANEEN resolved, RFTs WNL, consider adjusting if RFTs become elevated again) Will reassess prn. LABS: GLU 117 H, ALB 2.9 L GI: Pt had 1 BM today per RN doc BS: 10 high risk. Refer to wound assessment report for full details. PES: 1) Altered nutrition related labs r/t current medical condition aeb pt with elevated RFTs, hypoalb, hyperglycemia 2) Inadequate oral intake r/t current medical condition aeb pt with NPO diet order Comments: Will continue to monitor NPO status, skin status, pertinent labs and weight trends. Will f/u in 2-3 days. 1) Advance EN support with Glucerna @ 50 ml/hr per MD approval on current rate of propofol 2) refer pt to OPD on DC 3) Continue current plan of care
--- NOTE | 2020-06-03 11:50 | NUR ---
NOTIFIED DR MAYES THAT PT'S BP 189/111 AND RR OF 28. SHE WANTS THE PT RESTARTED ON SEDATION. STARTED VERSED AT 2 MG/HR AND DIPRIVAN AT 25 MCG/KG/MIN. CONTINUE TO MONITOR.
[2020-06-03] MEDS: MIDAZOLAM DRIP 50 mg/50mL 50 ML IV SCH (13:17)
[2020-06-03] MEDS: DOBUTamine 1000MCG/ML 250 ML IV SCH (13:17)
[2020-06-03] MEDS ORDERED: LABETALOL HCL 5 MG/ML 4ML SYRINGE IV PRN (15:45)
--- NOTE | 2020-06-03 17:02 | NUR ---
SS consult to speak with the daughter, Nika. Nika is the patient's biological daughter and she verbalized concerns that patient was being removed from the ventilator too soon. Per provider and ICU director pt's , Truman, made pt a DNR and wanted him extubated today. Explained to daughter the protocol for ventilator patients and for patients with no POA. Daughter stated that she did not have a relationship with and that had isolated pt from her and other family. Daughter requested that extubation be held off until tomorrow. Discussed with daughter that was up to the medical provider based on his clinical condition as well as input from the ( his closest relative for decision making). Daughter requested that she be contacted when they would do the terminal wean for pt. Notified ICU director and medical provider of the above.
--- NOTE | 2020-06-03 17:25 | NUR ---
FAMILY/DAUGHTER RECEIVED A PHONE CALL FROM THE PT'S DAUGHTER, FAHEEM. SHE IS REQUESTING TO BE NOTIFIED WHEN HER STEPMOTHER IS GOING TO DO THE TERMINAL WEAN.
--- NOTE | 2020-06-03 17:41 | NUR ---
NOTIFIED BY NETTA, ICU DIRECTOR, THAT LEGAL DEPARTMENT WILL BE REVIEWING THE CASE, PER CNO, AND ARE REQUESTING A COPY OF THE PT'S MARRIAGE CERTIFICATE.
--- NOTE | 2020-06-03 17:50 | NUR ---
VANCO TROUGH DRAWN.
--- NOTE | 2020-06-03 17:58 | NUR ---
NOTIFIED BY NETTA, ICU DIRECTOR, THAT PT CASE IS BEING REVIEWED BY THE LEGAL DEPT AND THAT THEY ARE REQUESTING A COPY OF THE PT'S MARRIAGE LICENSE.
--- NOTE | 2020-06-03 19:50 | NUR ---
REPORT REPORT GIVEN TO EMILY SOUZA RN.
[2020-06-04] VITALS (21 sets, daily range): BP systolic 104–168; BP diastolic 64–96
[2020-06-04] MEDS: PIPERACILLIN-TAZOB 3.375GM 100 ML IV SCH ×3 (01:00→13:00)
[2020-06-04] MEDS: FUROSEMIDE 40 MG/4 ML VIAL IV SCH ×2 (06:00→18:22)
[2020-06-04] MEDS: ALBUTEROL SULF 2.5 MG/0.5ML(0.5%) NEB SOLN NEB SCH ×2 (06:05→14:16)
[2020-06-04] MEDS: BUDESONIDE (INHALATION) 0.5 MG/2 ML NEB NEB SCH (06:05)
[2020-06-04] MEDS: ACETYLCYSTEINE 10 %(100MG/ML) SOL 4ML NEB SCH ×2 (06:06→14:16)
[2020-06-04] MEDS ORDERED: DexMEDEtomidine 400 MCG in D5W 5% 96 ML IV SCH (10:01)
[2020-06-04] MEDS: ENOXAPARIN SOD 40 MG/0.4 ML SYRINGE SC SCH (10:36)
[2020-06-04] MEDS: PANTOPRAZOLE 40 MG/10 ML VIAL INJ IV SCH (10:36)
[2020-06-04] MEDS: DOBUTamine 1000MCG/ML 250 ML IV SCH (11:00)
[2020-06-04] MEDS: MIDAZOLAM DRIP 50 mg/50mL 50 ML IV SCH (11:39)
--- NOTE | 2020-06-04 11:58 | NUR ---
PT IS DNR / DNI PT IS AWAKE OFF ALL SEDATION HE SHOOK HIS HAND WHEN ASKED BY DIRECTOR AND LEORA CERVANTES. PT DOES NOT WISH TO BE RE-INTUBATED WHEN HE GETS EXTUBATED. Addendum: 06/05/20 at 1505 by OSMEL COBURN RN AMENDMENT TO YESTERDAYS ENTRY I WAS INFORMED THAT THE ONE ROUNDING WITH ICU DIRECTOR NETTA WAS DR. ZUNIGA WHEN PT, NODDED HEAD ON AGREEMENT NOT TO BE RE-INTUBATED IF THE TUBE WAS TAKEN OUT.
--- NOTE | 2020-06-04 12:42 | NUR ---
PT PLACED ON CPAP TRIAL BY RT VENTURA PER DR. SMITH'S ORDERS . PT HAS BEEN ABLE TO FOLLOW COMMANDS SINCE 929. PT ON PRECEDEX GTT TO ALLOW HIM TO REMAIN CALM.
[2020-06-04] MEDS: PROPOFOL 100 ML IV SCH (12:45)
--- NOTE | 2020-06-04 14:21 | NUR ---
RT NOTE: PT. EXTUBATED WITHOUT INCIDENT PER DR. MAYES TELEPHONE ORDER. NO STRIDOR NOTED. PT. HR 98, RR 14, POX 98% ON 40%. BREATH SOUNDS ARE DIMINISHED T/O. RN SOHAIL BEDSIDE.
--- NOTE | 2020-06-04 14:21 | NUR ---
PT EXTUBATED BY RT LORENZO, PLACED ON A BREATHING TX IMMEDIATELY POST EXTUBATION. PT WILL BE PLACED ON 40% CM. PT'S WITH RHONCHI IN THE UPPER LOBES AND DIMINISHED IN THE LOWE LOBES, NO STRIDOR, RR 20 SPO2 100%. PT REMAINS ALERT AND ORIENTED.
--- NOTE | 2020-06-04 16:41 | NUR ---
RT NOTE: PT. PLACED ON 2L N/C. PT HR 98, RR 14, POX 98% ON 2L N/C. RN SOHAIL LU.
[2020-06-04] MEDS: VANCOMYCIN 1GM/250ML 250 ML IV SCH (17:54)
--- NOTE | 2020-06-04 19:45 | NUR ---
REPORT RECEIVED AND ASSUMED CARE; SEE INTERVENTIONS FOR ASSESSMENT; VS STABLE AT THIS TIME WITH PATIENT ON NASAL CANNULA AT 2L; PT. EXTUBATED AT 14:22 TODAY; PT. A & O X3; PT. DOING WELL POST EXTUBATION AND WILL CONT. TO MONITOR.
--- NOTE | 2020-06-04 21:00 | NUR ---
REPORT GIVEN TO MARY SILVA ON MED-SURG/TELE.
--- NOTE | 2020-06-04 21:35 | NUR ---
PT. TRANSFERRED TO #205 AND OFF OUR UNIT; PT. V/S STABLE AND TRANSFERRED ON 2L O2.
--- NOTE | 2020-06-04 21:45 | NUR ---
PATIENT TRANSFERRED FROM ICU TO MED SURG. PATIENTS VITALS STABLE, NO COMPLAINTS OF PAIN AT THIS TIME. BED IS LOCKED IN LOWEST POSITION WITH SIDE RAILS UP X2 FOR SAFETY. CALL LIGHT IS WITHIN REACH AND PATIENT ENCOURAGED TO CALL FOR ASSISTANCE NEEDED. NEW TELE BOX IS PLACED ON PATIENT FOR MONITORING ONLY PATIENT IS A DNR. WILL CONTINUE TO ROUND Q1HR AND PRN.
[2020-06-05] MEDS: VANCOMYCIN 1GM/250ML 250 ML IV SCH ×2 (04:54→21:57)
[2020-06-05 05:19] VITALS: BP 134/81
[2020-06-05] MEDS: FUROSEMIDE 40 MG/4 ML VIAL IV SCH ×2 (05:43→17:09)
[2020-06-05 09:00] VITALS: BP 141/75
[2020-06-05] MEDS: PANTOPRAZOLE 40 MG/10 ML VIAL INJ IV SCH (10:01)
[2020-06-05] MEDS: ENOXAPARIN SOD 40 MG/0.4 ML SYRINGE SC SCH (10:01)
[2020-06-05] MEDS: THIAMINE 100mg/ml INJ (200mg/2ml VIAL) IV SCH (10:02)
--- NOTE | 2020-06-05 10:30 | NUR ---
WOUND CARE NOTE: PATIENT ON SKIN INTEGRITY MONITORING D/T INTUBATION STATUS. PATIENT IS NOW EXTUBATED, UP ON TELE FLOOR. CURRENT CADEN SCORE IS 15. PATIENT CAN ASSIST WITH HIS TURNING/REPOSITIONING, ALTHOUGH HE IS WEAK. PATIENT HAS NO SKIN INTEGRITY ISSUES AT THIS TIME. SKIN/WOUND CARE PLAN UPDATED. RECOMMEND: CONTINUATION WITH ALL WOUND CARE ORDERS PREVIOUSLY PRESCRIBED BY MD. WOUND CARE TEAM WILL CONTINUE TO MONITOR.
[2020-06-05 13:00] VITALS: BP 144/96
--- NOTE | 2020-06-05 13:50 | NUR ---
Nutrition Assessment Followup Notes Pt wt is 53.1 kg Pt is s/p extubation. Pt is awake with NPO diet order. Pt awaiting transfer to SNF per DC summary note. Pt last received TF 06/04 per Rn note, on 06/04 pt received 330ml of Glucerna 1.2. Consider advancing pt to diet when medically feasible Est energy needs 4183-6205 kcal (25-30 kcal/kg BW 63kg) , Est protein needs 50-63g (0.8-1g/kg BW 63kg appears JANEEN resolved, RFTs WNL, consider adjusting if RFTs become elevated again) Will reassess prn. LABS: BUN 36H, Alb 2.9L GI: Pt had 1 BM 06/03 per RN doc BS: 15 mod risk. Refer to wound assessment report for full details. PES: 1) Altered nutrition related labs r/t current medical condition aeb pt with elevated RFTs, hypoalb, hyperglycemia 2) Inadequate oral intake r/t current medical condition aeb pt with NPO diet order Comments: Will continue to monitor NPO status, skin status, pertinent labs and weight trends. Will f/u in 2-3 days. 1) advance diet as medically feasible 2) refer pt to OPD on DC 3) Continue current plan of care
--- NOTE | 2020-06-05 14:07 | NUR ---
re-assessment Patient is off the vent and down graded to 205. Patient informed me he wants to be a full code with intubation. Cindy GIL was in the room and witnessed patient saying full code. I informed patient of his consult for SNF placement. Patient agrees to rehab at SNF. Patient is alert and oriented and able to make his own decisions. a[employer]rla pension manager will follow up with [facility] for SNF placement. Addendum: 06/05/20 at 1410 by Mariah Cedlilo Amended: Links added.
--- NOTE | 2020-06-05 15:03 | NUR ---
06/05/20 0684, Faxed to [facility] , face sheet, discharge summary, progress notes, request for snf placement, PT eval.
--- NOTE | 2020-06-05 15:07 | NUR ---
Swallow evaluation done. Addendum: 06/05/20 at 1518 by Ivan Licona RN diet recommendation by speech therapist after swallow evaluation is mechanical soft diet with thin liquids.
--- NOTE | 2020-06-05 15:29 | NUR ---
06/05/20 1529 Received a call from Samantha BLACKWOOD at [facility] and gave updated report on the patient and faxed the SNF placement referral form.
--- NOTE | 2020-06-05 15:53 | NUR ---
SWALLOW EVALUATED. PATIENT HAS NATURAL TEETH, UPPER AND LOWER. PATIENT ABLE TO FOLLOW COMMANDS. PATIENT ABLE TO TOLERATE MECHANICAL SOFT DIET TEXTURE WITH THIN LIQUIDS WITH NO OVERT SIGNS OR SYMPTOMS OF ASPIRATION. NURSING NOTIFIED.
--- NOTE | 2020-06-05 15:56 | NUR ---
EEG- ELECTROENCEPHALOGRAM COMPLETED ON 06/02/2020 @ 09:30
--- NOTE | 2020-06-05 15:58 | NUR ---
EEG- ELECTROENCEPHALOGRAM COMPLETED ON 06/05/2020.
--- NOTE | 2020-06-05 16:10 | NUR ---
Called [facility] and spoke with [employer] contract analyst, stated patient has in patient stay authorization for 06/06/[facility] #[id number]
[2020-06-05 16:57] VITALS: BP 145/68
--- NOTE | 2020-06-05 20:00 | NUR ---
Opening Shift Note Assumed care of patient. Awake, alert and oriented to self only. No S/S of distress/SOB or pain. Pt is on 2L NC with even and unlabored respirations. De La Fuente is off the floor, patent and draining dark yellow urine. Instructed on POC and to call for assist PRN. Safety precautions in place. Will continue to monitor for changes Q1hr and PRN.
[2020-06-05] MEDS: SACUBITRIL-VALSARTAN 24mg/26mg TAB PO SCH (21:57)
[2020-06-05 22:00] VITALS: BP 134/92
[2020-06-06 05:45] VITALS: BP 128/78
[2020-06-06] MEDS: FUROSEMIDE 40 MG/4 ML VIAL IV SCH (06:05)
--- NOTE | 2020-06-06 07:41 | NUR ---
OPENING SHIFT NOTE ASSUMED CARE OF PATIENT FROM PROOFING MACHINE OPERATOR MARY MATHEW. PATIENT IS AWAKE, ALERT, AND ORIENTED X1 (SELF). REORIENTED PATIENT TO PLACE, TIME, AND SITUATION. INSTRUCTED PATIENT ON POC, PATIENT VERBALIZED UNDERSTANDING. BED IS IN LOWEST POSITION WITH SIDE RAILS RAISED X2, BED WHEELS LOCKED, DAUGHERTY IS HANGING BELOW BLADDER AND IS DRAINING LIGHT KELLY URINE, BED ALARM ON, AND CALL LIGHT IS WITHIN REACH. WILL CONTINUE TO MONITOR.
[2020-06-06 09:00] VITALS: BP 137/86
[2020-06-06] MEDS ORDERED: DIGOXIN 0.125 MG TAB PO SCH (10:00)
[2020-06-06] MEDS: SACUBITRIL-VALSARTAN 24mg/26mg TAB PO SCH (10:26)
[2020-06-06] MEDS: PANTOPRAZOLE 40 MG/10 ML VIAL INJ IV SCH (10:27)
[2020-06-06] MEDS: THIAMINE 100mg/ml INJ (200mg/2ml VIAL) IV SCH (10:27)
[2020-06-06] MEDS: ENOXAPARIN SOD 40 MG/0.4 ML SYRINGE SC SCH (10:27)
--- NOTE | 2020-06-06 11:00 | NUR ---
Spoke with Kelli Casey Building Repair Maintenance Supervisor for Outpatient Services and stated the patient is going to [facility] in [place] but she doesn't have a bed yet. Addendum: 06/06/20 at 1331 by Aliya Wilcox RN, CM Kelli Casey works at [employer]
--- NOTE | 2020-06-06 12:15 | NUR ---
Received a call from Kelli Casey Mobile Sales Assistant of Out patient Services at [facility], stated the patient will be going to [facility] in [place], Room 902X under the accepting Dr. Nandini Cobos.
--- NOTE | 2020-06-06 12:30 | NUR ---
Received a call from Kelli Rodney for Out patient Services at [facility] and stated that [place], wanted a Rapid COVID test done, called Ganga HERNANDEZ the CN, and stated he will have it done.
[2020-06-06 13:00] VITALS: BP 148/77
--- NOTE | 2020-06-06 13:15 | NUR ---
Received a call from Bren BLACKWOOD at [facility] and stated Dr Kendrick Cobos Md ([phone]) who is over SNF placement wanted to speak to the MD, that was taking care of the patient today, express to her that it was Dr. Paulina Heaton, Called Dr Heaton and gave him the number for the Dr Kendrick Cobos and stated she wanted to talk with him regarding the patient.
--- NOTE | 2020-06-06 13:40 | NUR ---
Received a call from Dr Michael Heaton and stated he had spoke with DR. Crystal Cobos and answered her questions and the patient is ready to be discharged, express to him we are waiting for the rapid COVID to be done.
--- NOTE | 2020-06-06 13:47 | NUR ---
Received a call from Ganga TURCIOS and stated he called the lab, they stated the Rapid Covid was negative and it would be in the computer in 10 minutes
--- NOTE | 2020-06-06 14:15 | NUR ---
Faxed COVID results to [facility] and to [facility]
--- NOTE | 2020-06-06 14:29 | NUR ---
Spoke with Mariah configuration analyst at [facility] and stated she received the COVID results, she will be calling the unit to set up at pick time for the patient, gave patient information, ext [phone] room 205
--- NOTE | 2020-06-06 14:58 | NUR ---
RECEIVED CALL FROM NAVEEN FROM [facility] PATIENT HAS BEEN ACCEPTED AT [facility] ROOM 905 BED A. PHONE NUMBER FOR REPORT . ETA [phone]
--- NOTE | 2020-06-06 15:28 | NUR ---
SPOKE WITH BULB ASSEMBLER JAMIE REGARDING PATIENT CONSENT FOR TRANSFER. PATIENT UNABLE TO CONSENT DUE TO ALOC. PER JAMIE DAUGHTER YAMILET WILL BE THE ONE TO CONSENT FOR TRANSFER.
--- NOTE | 2020-06-06 15:29 | NUR ---
SPOKE WITH DR. FLORES REGARDING DAUGHERTY AND CENTRAL LINE. PER MD SOUSA BOTH AND MED REC WAS REDONE OVER TELEPHONE
--- NOTE | 2020-06-06 15:30 | NUR ---
REPORT GIVEN TO MARY VEGA.
[2020-06-06 16:06] VITALS: BP 148/77
--- NOTE | 2020-06-06 16:42 | NUR ---
Discharge instructions given as ordered. Encourage to follow up with PMD as instructed. All questions and concerns addressed. Patient verbalized understanding. Medication reconciliation form completed and copy given to patient. IV removed with catheter intact, pressure dressing applied, soto catheter removed. Patient taken to vehicle via gurney with all personal belongings, accompanied by [facility] staff. No distress noted at time of departure.
== END 2020-06-06 17:07 | DRG 870 ==
LOC: EDBD 09:18 → ER 09:18 → TELE 09:19 → ICU WEST 05-29 07:34 → CENTRAL 06-04 21:35
PROVIDERS: ATTEND Family Medicine
PROC: 5A1955Z Respiratory Ventilation, Greater than 96 Consecutive Hours (ICD-10-PCS; principal; 2020-05-27)
PROC: 0BH17EZ Insertion of Endotracheal Airway into Trachea, Via Natural or Artificial Opening (ICD-10-PCS; 2020-05-27)
PROC: 5A09357 Assistance with Respiratory Ventilation, Less than 24 Consecutive Hours, Continuous Positive Airway Pressure (ICD-10-PCS; 2020-05-27)
PROC: 06HM33Z Insertion of Infusion Device into Right Femoral Vein, Percutaneous Approach (ICD-10-PCS; 2020-05-27)
DX: A41.9 Sepsis, unspecified organism (principal); J96.01 Acute respiratory failure with hypoxia; N17.0 Acute kidney failure with tubular necrosis; G93.41 Metabolic encephalopathy; I50.21 Acute systolic (congestive) heart failure; J18.9 Pneumonia, unspecified organism; J45.901 Unspecified asthma with (acute) exacerbation; G93.1 Anoxic brain damage, not elsewhere classified; J44.0 Chronic obstructive pulmonary disease with (acute) lower respiratory infection; J81.1 Chronic pulmonary edema; E87.2 Acidosis; Z20.828 Contact with and (suspected) exposure to other viral communicable diseases; Z66 Do not resuscitate; F17.200 Nicotine dependence, unspecified, uncomplicated; I11.0 Hypertensive heart disease with heart failure; I25.5 Ischemic cardiomyopathy; F10.10 Alcohol abuse, uncomplicated; Z79.899 Other long term (current) drug therapy; Z83.3 Family history of diabetes mellitus
CPT/HCPCS: 36415; 36600; 70450; 71045; 74018; 76700; 80048; 80053; 80202; 81001; 82565; 82728; 82805; 82962; 83036; 83605; 83615; 83735; 83880; 84439; 84443; 84484; 85025; 85379; 85610; 85730; 86141; 86704; 86706; 86708; 86803; 86850; 86900; 86901; 87040; 87070; 87081; 87205; 87340; 87426; 92610; 93005; 93306; 93970; 94002; 94003; 94640; 94644; 94660; 95819; 97163; 99291; A4618; C9113; G0378; J0330; J2250; J2543; J2704; J3480; J3490; J7060; P9047